=== PATIENT | male | born 1955 | race Caucasian/White ===

== ENCOUNTER 2017-03-16 09:45 | Inpatient (IN) | payer OTHER ==
--- NOTE | 2017-03-10 22:51 | HP ---
CC: Dr. Celis; Dr. Thomas; Dr. Mead * ADMISSION HISTORY AND PHYSICAL: DATE OF ADMISSION: 03/16/17 ATTENDING SURGEON: Dr. Justin Kendall * (DICTATED BY CONCEPCIÓN RODRIGUEZ) CHIEF COMPLAINT: Colon cancer; liver disease. HISTORY OF PRESENT ILLNESS: This is a 61-year-old male with significant past medical history of alcoholism, type 2 diabetes and hypertension, who underwent initial screening colonoscopy on 02/09/[address] Mead. Findings at that time included two polyps, one at 15 and the other at 30 cm, the first at 15 cm being a tubular adenoma and the second at 30 cm being positive for invasive adenocarcinoma. Also noted was significant stiffness and angulation around the 30 cm point, though he was able to maneuver the scope to the cecum and there were no other additional findings or concerns. Because the initial lesions were not suspicious, the patient did require repeat colonoscopy on 02/23/17 to tattoo the area of the malignant lesion. In addition to the CT scan done that same date showed small right pleural effusion, hepatic steatosis, splenomegaly, but no evidence of metastatic disease. The patient has met with Dr. Thomas and is undergoing lab work for hemochromatosis, which is still pending. He was seen by Dr. Kendall on 02/22/[address] Kendall has reviewed his history and diagnostic workup. The patient understands the indications for surgery, the risks, benefits and alternatives. He would like to proceed as scheduled with laparoscopic assisted sigmoid colectomy with liver biopsy. 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 PAST SURGICAL HISTORY: Include an attempted exploratory laparotomy in 2010, which was aborted secondary to the combination of adhesions and bleeding problems, though the patient is unsure about the details. That surgery was I believe performed at [facility] in [place]. He has undergone sinus surgeries remotely and excision of a skin cancer at the bridge of the nose. No other surgical or anesthesia complications reported. CURRENT MEDICATIONS: 1. Glipizide extended release 2.5 mg once daily. 2. Metoprolol succinate extended release 25 mg once daily. 3. Mirtazapine 30 mg q.h.s. 4. Oxazepam 15 mg q.h.s. 5. Spironolactone 50 mg every day. 6. An unspecified prescription eyedrop that he uses p.r.n., but has not used in the last 6 months. 7. Multivitamin once daily. 8. Tums once daily. DRUG ALLERGIES: DIPHENHYDRAMINE (facial swelling) (the patient is unsure if he has ever had any similar reactions from other antihistamines). FAMILY HISTORY: Positive for cancer, possibly gallbladder cancer in his father and pancreatic cancer in his mother. He is unsure of any specific family history of colorectal cancer. There is no known family history of anesthesia problems, bleeding or clotting disorders. SOCIAL HISTORY: The patient is . He lives by himself. 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 He has never been a smoker. He has a history of alcoholism with recent intake being around five beers per day, though he states that for the past three days he has had no alcohol and intends to maintain abstinence. No other recreational drug use reported. REVIEW OF SYSTEMS: General: No recent constitutional symptoms or acute illnesses. His weight has been relatively stable. Cardiovascular: No chest pain, palpitations or history of cardiovascular disease, history for hypertension. Respiratory: No history of asthma, chronic cough, or shortness of breath. GI: No recent problems reported, other than per the HPI. He denies GERD symptoms. : He has been followed recently by Dr. Burns for a hydrocele on the right which has been minimally symptomatic. He has undergone digital rectal exam, but is unsure about any additional prostate cancer screening. Endocrine: Type 2 diabetes. He used to check fingersticks regularly, but states that he stopped because they were all close to normal. No history of thyroid dysfunction. PHYSICAL EXAMINATION GENERAL: Well-nourished, well-developed male, in no acute distress. VITAL SIGNS: Height 68 inches, weight 184 pounds, BMI of 28. Temperature 98.5 , blood pressure 128/82, pulse 76, respirations 12. HEENT: Pupils are equal, round, and reactive. EOMs intact. No conjunctival pallor or scleral icterus. Oropharynx: Teeth in fair to good repair. Some missing teeth. No acute lesions noted. NECK: No lymphadenopathy, thyromegaly, or masses. LUNGS: Clear to auscultation. No rales or wheezes. HEART: Regular rate and rhythm. No murmur noted. ABDOMEN: Well-healed periumbilical incision where there is also palpable bulge , which is nontender and reducible consistent with an incisional hernia. He also has an area of diastasis of the upper abdomen. The remainder of the abdomen is soft and nontender without palpable masses or organomegaly, though it is somewhat difficult to percuss his liver and spleen. GENITALIA AND RECTAL: Not done (right-sided hydrocele by history). BACK: No spinous process or CVA tenderness. EXTREMITIES: No edema. NEUROLOGICAL: Grossly intact. SKIN: Warm and dry. No suspicious rashes or lesions noted. IMPRESSION: Sigmoid colon cancer; possible cirrhosis, possible hemochromatosis. PLAN: Laparoscopic assisted-sigmoid colectomy; liver biopsy. CONCEPCIÓN RODRIGUEZ [id number]/[facility] #: [id number] MTDChantelle
[~2017-03-16 09:45] MED LIST: Buffered Lidocaine 0.9% SYRIN* 5 ML/SYR SYRINGE INTRADERM ONE; ERTApenem(*) 1 GM in NS 0.9% 50 ML* 50 ML IVPB SCH; Famotidine IV* 10 MG/ML 2 ML (20 mg) IV ONE; Metoclopramide TAB* 10 MG PO ONE
[2017-03-16] MEDS ORDERED: Metoclopramide TAB* 10 MG ONE (10:06)
[2017-03-16] MEDS ORDERED: Buffered Lidocaine 0.9% SYRIN* 5 ML/SYR SYRINGE ONE (10:06)
[2017-03-16] MEDS ORDERED: Famotidine IV* 10 MG/ML 2 ML (20 mg) ONE (10:06)
[2017-03-16] MEDS ORDERED: Dexamethasone IV* 4 MG/ML 1 ML (4 MG) ONE (12:11)
[2017-03-16] MEDS ORDERED: fentaNYL* 50 MCG/ML 5 ML VIAL (250 MCG VIAL) ONE (12:11)
[2017-03-16] MEDS ORDERED: Ketorolac INJ* 30 MG/ML 1 ML VIAL ONE (12:11)
[2017-03-16] MEDS ORDERED: Ondansetron INJ* 2 MG/ML VIAL ONE (12:11)
[2017-03-16] MEDS ORDERED: fentaNYL* 50 MCG/ML 2 ML VIAL (100 MCG VIAL) ONE ×2 (12:11→16:14)
[2017-03-16] MEDS ORDERED: Cisatracurium* 2 MG/ML MDV 5 ML ONE ×2 (12:11→15:57)
[2017-03-16] MEDS ORDERED: Midazolam* 1 MG/ML 10 ML VIAL (10 MG) ONE (12:11)
[2017-03-16] MEDS ORDERED: Propofol* 10 MG/ML 20 ML BTL IV PUSH ONE (12:11)
[2017-03-16] MEDS ORDERED: Lidocaine 2% PF * 5 ML VIAL ONE (12:11)
[2017-03-16] MEDS ORDERED: KETAMINE HCL* 50 MG/ML 10 ML VIAL ONE (12:11)
[2017-03-16] MEDS ORDERED: Bupivacaine 0.25% SDV* 30 ML ONE (12:42)
[2017-03-16] MEDS ORDERED: Phenylephrine IV* 40 MCG/ML 10 ML SYRINGE ONE (13:18)
[2017-03-16] MEDS ORDERED: Bupivacaine 0.5% SDV PF* 10-30ML VIAL ONE (13:21)
[2017-03-16] MEDS ORDERED: Phenylephrine INJ* 10 MG/ML 1 ML VIAL (10 MG) ONE (13:54)
[2017-03-16] MEDS ORDERED: EPHEDrine (Pressors)* 50 MG/ML VIAL ONE (14:00)
[2017-03-16] MEDS ORDERED: Ondansetron INJ* 2 MG/ML VIAL IV PRN ×2 (14:39→17:48)
[2017-03-16] MEDS ORDERED: fentaNYL* 50 MCG/ML 2 ML VIAL (100 MCG VIAL) IV PRN (14:39)
[2017-03-16] MEDS ORDERED: oxyCODONE/Acetamin 5/325 MG* TAB PO PRN (14:39)
[2017-03-16] MEDS ORDERED: Ketorolac INJ* 30 MG/ML 1 ML VIAL IV PRN (14:44)
[2017-03-16] MEDS ORDERED: Ropivacaine 0.2% EPIDURAL* 200 MG/100 ML BAG EPIDURAL SCH (15:00)
[2017-03-16] MEDS ORDERED: Ropivacaine 0.2% EPIDURAL* 200 MG/100 ML BAG EPIDURAL ONE (15:49)
[2017-03-16] MEDS ORDERED: HYDROmorphone INJ* 1 MG/ML CARPUJECT SYRINGE ONE (16:24)
[2017-03-16] MEDS ORDERED: Ropivacaine (OR use only) 2 MG/ML 1 ML ONE ×2 (16:24→17:15)
[2017-03-16] MEDS ORDERED: Neostigmine Methylsulfate* 2 MG/2 ML SYRINGE ONE (17:14)
[2017-03-16] MEDS ORDERED: Glycopyrrolate IV* 0.2 MG/ML 1 ML VIAL ONE (17:14)
[2017-03-16] MEDS ORDERED: Morphine PCA ADULT* 5 MG/ML 30 ML PCA SCH (18:00)
--- NOTE | 2017-03-16 18:11 | BRIEFOPN ---
Brief Operative Note - Surgery Procedures: PREOP DX: SIGMOID COLON CA; LIVER DISEASE POSTOP DX: SAME AND PERITONEAL ADHESIONS PROC: LAPAROSCOPY UNIQUE; LAPAROTOMY UNIQEU, SIGMOID COLECTOMY, CORE NEEDLE LIVER BIOPSY. SURG: MECENAS ASSIST: REENA ANES: GET; TOAL EBL: 500ML IVF: 4.3 L LR U/O: SPEC: 1) SIGMOID COLON 2) LIVER BX DRAIN: NONE COMPL: NONE CONDITION: STABLE; EXTUBATED; TO RR.
[2017-03-16] MEDS ORDERED: Dextrose 50% Syringe 50 ML* 25 GM/50 ML SYRINGE IV PUSH PRN (20:51)
[2017-03-16] MEDS ORDERED: Oxazepam CAP* 15 MG PO SCH (21:00)
[2017-03-16] MEDS ORDERED: Metoprolol Succinate XL TAB* 25 MG PO SCH (21:00)
[2017-03-16] MEDS: Metoprolol Tartrate TAB* 25 MG PO SCH (22:28)
[2017-03-16] MEDS: Mirtazapine TAB* 15 MG PO SCH (22:28)
[2017-03-16] MEDS: Insulin LISPRO* 1 UNITS UNIT SUBCUT SCH (22:29)
[2017-03-16] MEDS: Oxazepam CAP* 15 MG PO SCH (22:38)
--- NOTE | 2017-03-17 01:38 | CONS ---
CC: Dr. Celis; Dr. Blood * CONSULTATION REPORT: DATE OF CONSULT: 03/16/17 SERVICE REQUESTING CONSULTATION: Surgery. PRIMARY CARE PROVIDER: Dr. Celis. REASON FOR CONSULTATION: Concern for alcohol withdrawal. SOURCE OF INFORMATION: History obtained from review of past medical records and interview with the patient. RELIABILITY: Fair. HISTORY OF PRESENT ILLNESS: This is a 61-year-old man underwent sigmoid colectomy, core needle liver biopsy, and lysis of adhesion on 03/16/[address] Kendall for removal after diagnosis of invasive adenocarcinoma and colonoscopy 02/09/17. The procedure reportedly uneventful, although full surgery note is not yet available. Estimated blood loss 500, 4.3 L lactated Ringer's received. In the PACU, the patient had a brief episode of hypotension, systolics 80s, recovered with decrease of epidural pain medication. The patient notes that he has been a heavy drinker of at least 5 beers per day for several years. His last drink was notably 2 days prior to this presentation. He cannot note any period of time that he has gone without drinking, which may have precipitated any withdrawal symptoms. When seen after the surgery, he had no complaints, not feeling anxious, agitated, no headache. The pain is well controlled. No clouding of sensorium. PAST MEDICAL HISTORY: Includes: 1. Alcoholism, approximately 5 drinks per day. 2. Concern for cirrhosis, status post liver biopsy today. Concern for hemochromatosis. Final study is pending. 3. Invasive adenocarcinoma, status post sigmoidectomy. 4. Type 2 diabetes. 5. Hypertension. 6. History of peptic ulcer disease. 7. Héctor's disease. 8. Insomnia. 9. Depression. PAST SURGICAL HISTORY: Includes attempted exploratory laparotomy in 2010, remote sinus surgeries, and excision of skin cancer on the bridge of the nose. HOME MEDICATIONS: 1. Glipizide extended release 2.5 mg daily. 2. Metoprolol succinate 25 mg daily. 3. Mirtazapine 30 mg in the evening. 4. Oxazepam 15 mg in the evening. 5. Spironolactone 50 mg daily. 6. Eyedrops unknown type, currently not in use. 7. Multivitamin daily. 8. Tums daily. ALLERGIES: ANTIHISTAMINES, AMPHETAMINE, and DIPHENHYDRAMINE. FAMILY HISTORY: Positive family history of cancer, suspected gallbladder in his father, pancreatic in his mother. SOCIAL HISTORY: . His ex- is his healthcare proxy. Nonsmoker. Drinks approximately 5 beers per day. Last drink 2 days prior. PHYSICAL EXAM: Vitals when seen by this author: Blood pressure 110/77, heart rate is 88, respiratory rate is 12, 100% on 2 L. T-max in the hospital 97.3. Lying flat in bed, awake, interactive, in no apparent distress. His oropharynx is clear. He has moist mucous membranes. He has regular rate and rhythm. No murmurs, rubs, or gallops. His lungs are clear anteriorly. His abdomen is soft. He has surgical incisions covered. His extremities are warm and well perfused without clubbing, cyanosis, or edema. He is alert and oriented x3. His cranial nerves II through XII are intact. He has no anxiety, agitation, or depression. DIAGNOSTIC STUDIES/LAB DATA: Labs reviewed, point of care glucose 162 at 6:14 p.m. ASSESSMENT AND PLAN: A 61-year-old man, status post sigmoidectomy, lysis of adhesions, and liver biopsy being seen secondary to concern for potential future alcohol withdrawal. 1. Alcohol abuse. Currently, no evidence of alcohol withdrawal. We will not place on withdrawal protocol at this time as he is status post surgery recite of sedating medications. He received additional benzodiazepines prematurely. Should he exhibit symptoms of alcohol withdrawal, we will initiate the [facility] protocol. I counseled alcohol cessation. 2. Hypertension. Take spironolactone, currently holding in the setting of hypotension, status post procedure. Continue metoprolol tartrate 12.5 mg twice daily withhold parameters. 3. Insomnia. Holding oxazepam in the setting of aforementioned anesthesia. 4. Type [address] on insulin sliding scale, adjust as necessary. 5. Colon cancer. Care per primary oncology team. Status post sigmoidectomy postop day 0, cared per primary surgical team. 6. DVT prophylaxis. Per primary team. Thank you for this consultation. [id number]/[facility] #: [id number] MAKAYLA
--- NOTE | 2017-03-17 04:47 | OP ---
CC: Micheal eClis MD; Soledad Thomas MD; Zeyad Mead MD * DATE OF OPERATION: 03/16/17 - ROOM #339 DATE OF : 53 SURGEON: Justin Kendall MD [employer] INTERN: Ruben Richardson MD ANESTHESIOLOGIST: Dr. Sander Ortiz. ANESTHESIA: General endotracheal. PRE-OP DIAGNOSES: Sigmoid colon carcinoma and liver disease. POST-OP DIAGNOSES: Sigmoid colon carcinoma and liver disease. OPERATIVE PROCEDURE: Diagnostic laparoscopy with lysis of adhesions, laparotomy with lysis of adhesions, sigmoid colectomy, and core needle biopsy of the liver. ESTIMATED BLOOD LOSS: 500 mL. IV FLUIDS: 4.3 L of crystalloid. SPECIMENS: 1. Sigmoid colon. 2. Liver biopsy. DRAINS: None. COMPLICATIONS: None. COUNTS: Instrument, needle, and sponge counts were correct. DESCRIPTION OF PROCEDURE: The patient was brought to the operating room and placed on the table in a split leg fashion. An epidural catheter was placed by Dr. Ortiz prior to the surgery. Sequential compression devices were placed on both lower extremities. General anesthesia was administered. The rectum was irrigated with Betadine solution and the prep appeared to be good. The abdomen was prepped and draped in the usual sterile fashion and he received appropriate intravenous antibiotics. Time-out was performed. Local anesthetic was infiltrated into the skin and soft tissue prior to making its incision. Entry to the abdomen was through an infraumbilical vertical incision using an open technique. After accessing the peritoneal cavity, a 12- mm trocar was placed and carbon dioxide was insufflated to a pressure of 15 mmHg. Laparoscope was introduced, and additional trocars were placed in the suprapubic midline in the left lower quadrant and right lower quadrant under direct visualization. These were each 5 mm trocars. There was noted to be an extensive amount of adhesions of omentum in the upper abdomen with adhesions of small intestine into a small incisional hernia in the midline. Adhesiolysis was performed to mobilize the descending colon; however, once the dissection was noted to be in the pelvis, the dense adhesions in the pelvis made further pursuit of a laparoscopic approach impractical and therefore decision was made to convert to an open procedure. A midline laparotomy was undertaken and this encompass the previous midline scar and extended down to the suprapubic region. The peritoneal cavity once opened revealed again numerous adhesions of small intestine into the anterior abdominal wall on the upper midline incision and numerous adhesions as well of the colon including the sigmoid colon, which was done upon itself coursing to the right side of the abdomen and coming back to the top of the rectum. The adhesions of the small bowel to the ventral incisional hernia were first addressed and after performing the lysis of adhesions and freeing the anterior abdominal wall at that side, the small bowel was inspected. There is a small serosal tear that was oversewn with 3-0 silks. Otherwise, there appeared to be no injury to the small intestine. There were dense adhesions of the omentum to the anterior abdominal wall and the upper abdomen; therefore, it was decided to proceed with a sigmoid dissection first. Sharp and blunt dissection as well as electrocautery and LigaSure were used to free the adhesions along the descending colon, along the white line of Toldt. There appeared to be quite a thickened mesentery with thickened sigmoid colon dripping over toward the right side and then turning back to the left before meeting with the rectum. There were interloop adhesions of the colon to itself, there were adhesions of the colon to the peritoneum in the pelvis and these were all lysed using the above combination of techniques. Once the sigmoid colon was mobilized, it was noted that the mesentery was quite short and thick. The descending colon was divided at the junction with the sigmoid using a MINI 60 blue stapler and then LigaSure was used to incrementally divide the mesentery, staying out of the retroperitoneum well away from the ureter and gonadal vessels on the left. The dissection proceeded down to the top of the rectum. At this point, a window was created in the rectum mesentery and the proximal rectum and the rectum was stapled off with the TA 60-4.8 Stapler and the proximal rectum was occluded with a bowel clamp, then the rectum was divided. The specimen was elevated and again the LigaSure was used to divide the remaining attachments to the mesentery. Once the specimen was freed, it was submitted to pathology in formalin. Decision was to proceed with the EEA stapled anastomosis and the proximal colon staple line was excised and the 28-mm EEA stapler was selected for the anastomosis. The anvil was placed in a proximal lumen and a pursestring suture of 2-0 Prolene was used as a whipstitch to secure the anvil. The colorectal anastomosis was performed with the EEA stapler using a double staple technique and after completing the anastomosis, bubble leak test was performed with no leak identified. The pelvis was copiously lavaged and then attention was turned to the upper abdomen for adhesiolysis in order to perform the liver biopsy. The omentum that was densely adhered to the anterior abdominal wall throughout the upper abdomen was dissected free using a combination of blunt dissection and cautery. The raw surfaces were noted to ooze. The liver felt very firm and was not able to be fully visualized at first, then a small window was created in omentum that was covering the right lobe of the liver and this was the site of the liver biopsy. The biopsy needle was placed through a separate stab wound incision in the right upper quadrant directed toward the right lobe of the liver and then a core biopsy specimen was obtained and hemostasis was achieved with a combination of cautery and Surgicel and direct pressure to the site. The abdomen was copiously lavaged and inspected for hemostasis. Additional Surgicel was placed over the areas of the omentum and the upper abdomen as well. After assuring hemostasis, the laparotomy incision was closed with #1 looped PDS. To mobilize the fascial edges at the incisional hernia, subcutaneous tissue was raised as flaps to identify the fascial edges. The umbilical stalk was reapproximated to the fascia with interrupted 3-0 Vicryl. After completing the closure, the wound was copiously lavaged and then again inspected for hemostasis. The skin incisions were all closed with surgical edmar. The wounds were dressed with Coverlet dressings except for the liver biopsy site that was covered with Steri-Strips. The patient tolerated the procedure well, was extubated uneventfully and transferred to the recovery room in stable condition. The procedure was considerably more difficult to do than would be typical due to the extensive amounts of adhesions present. The operative time for the case was approximately 3-1/5 hours. [id number]/[facility] #: [id number] [facility] HEALTH PARTNERSChantelle
[2017-03-17 05:44] LABS: ABS Basophils 0 10^3/ul (0-0.2); ABS Eosinophils 0 10^3/ul (0-0.6); ABS Lymphocytes 0.2 10^3/ul (1.0-4.8); ABS Monocytes 0.3 10^3/ul (0-0.8); ABS Neutrophils 2.9 10^3/ul (1.5-7.7); ABS Nucleated RBC 0 10^3/ul; Eosinophil % 0.6 % (0-6); Hematocrit 31 % (42-52); Hemoglobin 11.1 g/dl (14.0-18.0); Lymphocyte % 6.3 % (25-47); Mean Corpuscular HGB Conc 35 g/dl (31-36); Mean Corpuscular Hemoglobin 35 pg (27-31); Mean Corpuscular Volume 100 fL (80-94); Nucleated Red Blood Cells % 0.1; Red Blood Count 3.15 10^6/ul (4.0-5.4); Red Cell Distribution Width 13 % (10.5-15); White Blood Count 3.5 10^3/ul (3.5-10.8)
[2017-03-17 05:58] LABS: EGFR Non-African American 92.6 (>60)
[2017-03-17 06:18] LABS: Mean Platelet Volume 10 um3 (7.4-10.4)
[2017-03-17 06:19] LABS: Platelet Count 59 10^3/ul (150-450)
[2017-03-17] MEDS: Insulin LISPRO* 1 UNITS UNIT SUBCUT SCH ×4 (07:27→21:29)
--- NOTE | 2017-03-17 09:08 | SURGPN ---
Subjective - Introduction -: Admitted on: 03/16/2017 Patient's surgical date: 03/16/2017 Procedure completed: Laparoscopoic UNIQUE, converted to laparotomy with UNIQUE, sigmoid colectomy and liver biopsy - Medications -: Active Medications Generic Name Dose Route Start Last Admin Trade Name Freq PRN Reason Stop Dose Admin Dextrose 12.5 gm 03/16/17 20:51 D50w Syringe 50 Ml* IV PUSH .FOR FS < 60 - SS PRN FS < 60 Ropivacaine 200 mg in 100 mls @ 0 mls/hr 03/16/17 15:00 03/17/17 07:23 Ropivacaine 0.2% Epidural* EPIDURAL 8 mls/hr .PER RATE LUCIE Administration Protocol Per Protocol Lactated Ringer's 500 mls @ 2,000 mls/hr 03/16/17 14:44 Lactated Ringers 500 Ml Bag* IV ONCE PRN FOR SBP < 90 Lactated Ringer's 1,000 mls @ 125 mls/hr 03/16/17 18:00 03/17/17 05:12 Lactated Ringers 1000 Ml Bag* IV 125 mls/hr .per rate LUCIE Administration Morphine Sulfate 30 mls @ 0 mls/hr 03/16/17 18:00 03/17/17 07:45 Morphine Front Office Supervisor Adult* 5 Mg/Ml FACTORY SUPERINTENDENT 1 mls/hr .change Q24H LUCIE Administration Protocol Per Protocol Insulin Human Lispro 0 units 03/16/17 21:00 03/17/17 07:27 Humalog* SUBCUT Not Given ACHS LUCIE Protocol Metoprolol Tartrate 12.5 mg 03/16/17 21:00 03/16/17 22:28 Lopressor Tab* PO 12.5 mg Q12HR LUCIE Administration Mirtazapine 30 mg 03/16/17 21:00 03/16/17 22:28 Remeron Tab* PO 30 mg BEDTIME LUCIE Administration Ondansetron HCl 4 mg 03/16/17 17:48 Zofran Inj* IV Q4H PRN NAUSEA/VOMITING Oxazepam 15 mg 03/16/17 21:00 03/16/17 22:38 Serax Cap* PO Not Given BEDTIME LUCIE - Comments Comments: Patient seen and examined at bedside. Reports doing better this AM. Pain is tolerable with FACTORY SUPERINTENDENT started earlier today. Denies nausea, vomiting, fever or chills. Objective - Objective -: Awake and alert, laying on his bed, appears comfortable and in NAD - Intake and Output -: Intake & Output 03/15/17 03/16/17 03/17/17 03/18/17 06:59 06:59 06:59 06:59 Intake Total 5734 Output Total 600 Balance 5134 Weight 176 lb 12.8 oz Intake: IV Fluids 5734 LR 5684 NS 50ML, Ertopenin 1G 50 Oral 0 Output: Andres 600 Other: Estimated Blood Loss 500+ Comment Surgical Physical Exam - Comments -: Vitals reviewed, afebrile Lungs CTA bilat. Heart RRR, no murmurs Abdomen soft, NT, ND. Incisions clean and dry. No guarding or rigidity. Andres with clear urine. Labs reviewed, H/H stable, Plt 59,000 Assessment and Plan - Assessment -: A 61 y/o male, POD#1, s/p laparoscopic converted to open sigmoid colectomy with UNIQUE and liver biopsy, stable - Plan Additional Comments: Clear liquid diet OOB to chair as tolerated Anemia of blood loss, hemodynamically stable Thrombocytopenia, Dr. Kendall aware and will discuss with Dr. Hugo Check labs in AM GI and DVT prophylaxis
[2017-03-17] MEDS: Metoprolol Tartrate TAB* 25 MG PO SCH ×2 (09:42→21:30)
[2017-03-17] MEDS ORDERED: NS 0.9% 500 ML* 500 ML IV SCH (11:00)
[2017-03-17] MEDS ORDERED: LR IV ONE (16:35)
[2017-03-17] MEDS ORDERED: NS 0.9% 250 ML* 250 ML ONE (16:47)
[2017-03-17] MEDS ORDERED: Ropivacaine* 300 MG in NS 0.9% 250 ML* 240 ML EPIDURAL SCH (17:00)
--- NOTE | 2017-03-17 17:50 | PN ---
Subjective Date of Service: 03/17/17 Interval History: Patient seen and examined at bedside. Patient reports that he was abstinent from alcohol for quite sometime and did not have any symptoms of withdrawal when he quit or during his period of heavy drinking. He did start drinking about a month ago. Currently he reports pain controlled. Still has epidural running and BP has been on the lower side. Pt denies dizziness at this time. Pt also denies hallucinations or symptoms of withdrawal. Family History: Unchanged from Admission Social History: Unchanged from Admission Past Medical History: Unchanged from Admission Objective Active Medications: Lactated Ringer's (Lactated Ringers 500 Ml Bag*) 500 mls @ 2,000 mls/hr IV ONCE PRN Lactated Ringer's (Lactated Ringers 1000 Ml Bag*) 1,000 mls @ 125 mls/hr IV .per rate LUCIE Morphine Sulfate (Morphine Supervisor [employer] Adult* 5 Mg/Ml) 30 mls @ 0 mls/hr CARAMEL CUTTER HAND .change Q24H LUCIE; Per Protocol Ropivacaine 300 mg/ Sodium (Chloride) 300 mls @ 0 mls/hr EPIDURAL PER RATE LUCIE ; Per Protocol Insulin Human Lispro (Humalog*) 0 units SUBCUT ACHS LUCIE Metoprolol Tartrate (Lopressor Tab*) 12.5 mg PO Q12HR LUCIE Mirtazapine (Remeron Tab*) 30 mg PO BEDTIME LUCIE Omeprazole (Prilosec Cap*) 20 mg PO 0600 LUCIE Ondansetron HCl (Zofran Inj*) 4 mg IV Q4H PRN Oxazepam (Serax Cap*) 15 mg PO BEDTIME LUCIE Vital Signs Temp Pulse Resp BP Pulse Ox 98.8 F 112 16 115/66 97 03/17/17 17:35 03/17/17 17:35 03/17/17 17:55 03/17/17 17:35 03/17/17 15:21 Oxygen Devices in Use Now: Nasal Cannula Appearance: sitting up in bed, NAD Eyes: No Scleral Icterus, PERRLA Ears/Nose/Mouth/Throat: NL Teeth, Lips, Gums Neck: NL Appearance and Movements; NL JVP Respiratory: Symmetrical Chest Expansion and Respiratory Effort, Clear to Auscultation Cardiovascular: NL Sounds; No Murmurs; No JVD, RRR Abdominal: - - abdomen soft Extremities: No Edema Skin: No Rash or Ulcers, - - surgical incisions intact Neurological: Alert and Oriented x 3 Lines/Tubes/Other Access: Clean, Dry and Intact Peripheral IV Nutrition: Taking PO's Result Diagrams: 03/17/17 05:34 03/17/17 05:34 Assess/Plan/Problems-Billing Pt is a 61 y/o M hx of EtOH abuse, HTN, s/p sigmoidectomy for invasive adenocarcinoma, lysis of adhesions and liver biopsy. Hospitalist consulted for EtOH withdrawal. - Patient Problems (1) Alcohol withdrawal Comment: No signs or symptoms of withdrawal. No WAM protocol for now. Would institute if patient starts to exhibit and sign/symptoms. (2) Hypotension Comment: Asymptomatic. Suspect secondary to epidural which is managed by anesthesia. Dose being decreased and patient receiving bolus. (3) Status post laparoscopic-assisted sigmoidectomy Comment: Management per surgery. Pain control. (4) HTN (hypertension) Comment: Metoprolol has hold parameters and was not given today. (5) Diabetes Comment: Sugars controlled. Continue Lispro sliding scale. (6) Insomnia Comment: Oxazepam on hold with other narcotics. (7) DVT prophylaxis Comment: per primary team (8) Full code status Status and Disposition: Inpatient for sigmoidectomy. Dispo per surgery.
[2017-03-17 18:15] LABS: Mean Platelet Volume 10 um3 (7.4-10.4); Platelet Count 72 10^3/ul (150-450)
[2017-03-17] MEDS: Mirtazapine TAB* 15 MG PO SCH (21:31)
[2017-03-17] MEDS: Oxazepam CAP* 15 MG PO SCH (23:10)
--- NOTE | 2017-03-18 00:23 | PN ---
Progress Note - Progress Note Date of Service: 03/18/17 Note: Cross cover note: Called to see patient for tachycardia Abdominal pain currently 05/29. Denies anxiety, nausea, CP/SOB, ORR. No clouding of sensorium, hallucination, anxiety/agitation Mild distention and mild TTP throughout, patient not diaphoretic, no tremulousness. EKG performed - sinus tachycardia BP noted to be low today thought 2/2 spidural. Responded to med changes and fluid challenge Received 1 U Platelets this afternoon Care already discussed with primary surgical team yojana who has requested hospitalist follow Plan: 1L LR fluid challenge now Place on telemetry for more facile trending of HR Check CBC Doubt rebound from beta tessa as he only missed 1 dose today Doubt etoh withdrawal without above listed symptoms
[2017-03-18 00:38] LABS: ABS Basophils 0 10^3/ul (0-0.2); ABS Eosinophils 0.4 10^3/ul (0-0.6); ABS Lymphocytes 0.5 10^3/ul (1.0-4.8); ABS Monocytes 0.5 10^3/ul (0-0.8); ABS Neutrophils 3.8 10^3/ul (1.5-7.7); ABS Nucleated RBC 0 10^3/ul; Eosinophil % 8.5 % (0-6); Hematocrit 30 % (42-52); Hemoglobin 10.6 g/dl (14.0-18.0); Lymphocyte % 8.9 % (25-47); Mean Corpuscular HGB Conc 35 g/dl (31-36); Mean Corpuscular Hemoglobin 35 pg (27-31); Mean Corpuscular Volume 100 fL (80-94); Mean Platelet Volume 10 um3 (7.4-10.4); Nucleated Red Blood Cells % 0.1; Red Blood Count 2.98 10^6/ul (4.0-5.4); Red Cell Distribution Width 13 % (10.5-15); White Blood Count 5.1 10^3/ul (3.5-10.8)
[2017-03-18 00:40] LABS: Platelet Count 61 10^3/ul (150-450)
[2017-03-18 05:22] LABS: ABS Basophils 0 10^3/ul (0-0.2); ABS Eosinophils 0.4 10^3/ul (0-0.6); ABS Lymphocytes 0.5 10^3/ul (1.0-4.8); ABS Monocytes 0.3 10^3/ul (0-0.8); ABS Neutrophils 3.1 10^3/ul (1.5-7.7); ABS Nucleated RBC 0 10^3/ul; Eosinophil % 9.1 % (0-6); Hematocrit 30 % (42-52); Hemoglobin 10.5 g/dl (14.0-18.0); Lymphocyte % 10.5 % (25-47); Mean Corpuscular HGB Conc 35 g/dl (31-36); Mean Corpuscular Hemoglobin 36 pg (27-31); Mean Corpuscular Volume 101 fL (80-94); Nucleated Red Blood Cells % 0; Red Blood Count 2.94 10^6/ul (4.0-5.4); Red Cell Distribution Width 13 % (10.5-15); White Blood Count 4.3 10^3/ul (3.5-10.8)
[2017-03-18 05:32] LABS: EGFR Non-African American 99.4 (>60)
[2017-03-18 06:04] LABS: Mean Platelet Volume 11 um3 (7.4-10.4); Platelet Count 51 10^3/ul (150-450)
[2017-03-18] MEDS: Omeprazole CAP* 20 MG PO SCH (06:44)
[2017-03-18] MEDS: Insulin LISPRO* 1 UNITS UNIT SUBCUT SCH ×4 (08:09→21:20)
[2017-03-18] MEDS: Metoprolol Tartrate TAB* 25 MG PO SCH ×2 (08:11→21:19)
--- NOTE | 2017-03-18 08:11 | PN ---
Progress Note - Progress Note Date of Service: 03/18/17 SOAP: Subjective: "rough night" felt over sedated from morphine and "out of it" was also tachycardic for unclear reasons over night. abdominal pain well controlled. passing gas. no bleeding noted Objective: Vital Signs Temp Pulse Resp BP Pulse Ox 99.4 F 109 16 153/81 95 03/18/17 00:41 03/18/17 06:51 03/18/17 06:51 03/18/17 01:51 03/18/17 06:51 lying flat in nad perr eomi no tremors noted tachycardia cta bl minimal blood on midline dressing. min ttp, no ecchymoses, +bs no le edema A+O x 3, nonfocal neurological exam Laboratory Results - last 24 hr 03/17/17 03/17/17 03/17/17 12:00 17:12 18:09 WBC RBC Hgb Hct MCV MCH MCHC RDW Plt Count 72 L MPV 10 Neut % (Auto) Lymph % (Auto) [place] % (Auto) Eos % (Auto) Baso % (Auto) Absolute Neuts (auto) Absolute Lymphs (auto) Absolute Monos (auto) Absolute Eos (auto) Absolute Basos (auto) Absolute Nucleated RBC Nucleated RBC % Sodium Potassium Chloride Carbon Dioxide Anion Gap BUN Creatinine Est GFR ( Amer) Est GFR (Non-Af Amer) BUN/Creatinine Ratio Glucose POC Glucose (mg/dL) 185 H 194 H Calcium Magnesium 03/17/17 03/18/17 03/18/17 21:07 00:27 04:54 WBC 5.1 RBC 2.98 L Hgb 10.6 L Hct 30 L MCV 100 H MCH 35 H MCHC 35 RDW 13 Plt Count 61 L MPV 10 Neut % (Auto) 73.3 Lymph % (Auto) 8.9 L [place] % (Auto) 9.1 H Eos % (Auto) 8.5 H Baso % (Auto) 0.2 Absolute Neuts (auto) 3.8 Absolute Lymphs (auto) 0.5 L Absolute Monos (auto) 0.5 Absolute Eos (auto) 0.4 Absolute Basos (auto) 0 Absolute Nucleated RBC 0 Nucleated RBC % 0.1 Sodium 138 Potassium TNP Chloride 106 Carbon Dioxide 27 Anion Gap 5 BUN 9 Creatinine 0.79 Est GFR ( Amer) 127.8 Est GFR (Non-Af Amer) 99.4 BUN/Creatinine Ratio 11.4 Glucose 112 H POC Glucose (mg/dL) 158 H Calcium 8.0 L Magnesium Cancelled 03/18/17 04:59 WBC 4.3 RBC 2.94 L Hgb 10.5 L Hct 30 L MCV 101 H MCH 36 H MCHC 35 RDW 13 Plt Count 51 L MPV 11 H Neut % (Auto) 72.5 Lymph % (Auto) 10.5 L [place] % (Auto) 7.6 Eos % (Auto) 9.1 H Baso % (Auto) 0.3 Absolute Neuts (auto) 3.1 Absolute Lymphs (auto) 0.5 L Absolute Monos (auto) 0.3 Absolute Eos (auto) 0.4 Absolute Basos (auto) 0 Absolute Nucleated RBC 0 Nucleated RBC % 0 Sodium Potassium Chloride Carbon Dioxide Anion Gap BUN Creatinine Est GFR ( Amer) Est GFR (Non-Af Amer) BUN/Creatinine Ratio Glucose POC Glucose (mg/dL) Calcium Magnesium Dextrose (D50w Syringe 50 Ml*) 12.5 gm IV PUSH .FOR FS < 60 - SS PRN PRN Reason: FS < 60 Lactated Ringer's (Lactated Ringers 500 Ml Bag*) 500 mls @ 2,000 mls/hr IV ONCE PRN PRN Reason: FOR SBP < 90 Lactated Ringer's (Lactated Ringers 1000 Ml Bag*) 1,000 mls @ 125 mls/hr IV .per rate LUCIE Last Admin: 03/18/17 07:57 Dose: 125 mls/hr Morphine Sulfate (Morphine Guest Specialist Adult* 5 Mg/Ml) 30 mls @ 0 mls/hr SYSTEMS NAVIGATOR .change Q24H LUCIE; Per Protocol PRN Reason: Protocol Last Admin: 03/17/17 07:45 Dose: 1 mls/hr Ropivacaine 300 mg/ Sodium (Chloride) 300 mls @ 0 mls/hr EPIDURAL PER RATE LUCIE ; Per Protocol PRN Reason: Protocol Last Admin: 03/17/17 17:02 Dose: 10 mls/hr Lactated Ringer's (Lactated Ringers 1000 Ml Bag*) 1,000 mls @ 0 mls/hr IV WIDE OPEN LUCIE PRN Reason: Wide Open Stop: 03/18/17 23:59 Last Admin: 03/18/17 00:56 Dose: 999 mls/hr Insulin Human Lispro (Humalog*) 0 units SUBCUT ACHS LUCIE PRN Reason: Protocol Last Admin: 03/17/17 21:29 Dose: 1 units Metoprolol Tartrate (Lopressor Tab*) 12.5 mg PO Q12HR LUCIE Last Admin: 03/17/17 21:30 Dose: 12.5 mg Mirtazapine (Remeron Tab*) 30 mg PO BEDTIME LUCIE Last Admin: 03/17/17 21:31 Dose: 30 mg Omeprazole (Prilosec Cap*) 20 mg PO 0600 LUCIE Last Admin: 03/18/17 06:44 Dose: 20 mg Ondansetron HCl (Zofran Inj*) 4 mg IV Q4H PRN PRN Reason: NAUSEA/VOMITING Oxazepam (Serax Cap*) 15 mg PO BEDTIME [facility] Last Admin: 03/17/17 23:10 Dose: Not Given Assessment: 61 yo M w cirrhosis (ETOH and newly diagnosed hemachromatosis) and colon CA sp hemicolectomy now with thrombocytopenia postoperatively with epidural catheter in place. Clearly he is at higher risk of complication with this catheter in place. I would recommend checking to make sure that he is not otherwise coagulopathic (PT/PTT ordered), and then transfusing 1 U plts and if count >70 pulling catheter. I have asked the blood bank to order in the unit but did not order transfusion yet pending coags. If he is coagulopathic I would give weight -dosed FFP in addition to the platelets. I have verbalized these recommendations to Dr. Kendall.
[2017-03-18 09:39] LABS: INR 1.21 (0.77-1.02)
[2017-03-18] MEDS ORDERED: Phytonadione Oral Solution* 5 MG/25 ML UDC PO ONE (09:41)
--- NOTE | 2017-03-18 10:37 | PN ---
Progress Note - Progress Note Date of Service: 03/18/17 SOAP: Subjective: No pain control issues. Never had nausea. Tolerating clears. Passing flatus and had loose BMs yesterday, no blood. He doesn't like the way the DRY KILN BURNER makes him feel. Objective: Vital Signs Temp 99.7 F 03/18/17 07:39 Pulse 108 03/18/17 07:39 Resp 18 03/18/17 10:00 BP 145/76 03/18/17 07:39 Pulse Ox 96 03/18/17 10:00 Intake & Output 03/17/17 03/18/17 03/18/17 18:59 06:59 18:59 Intake Total 2682 2171 963 Output Total 350 1400 Balance 2332 771 963 Intake: IV Fluids 1592 696 963 LR 1592 696 963 IVPB 500 1000 LR 1000 NS (0.9%) 500 Oral 540 475 Platelets 50 Output: Andres 350 1400 OOB in chair; NAD Abd: incis c/d/i; minimal ecchmosis and no erythema; soft and min tender; distended. Laboratory Results - last 24 hr 03/17/17 03/17/17 03/17/17 12:00 17:12 18:09 WBC RBC Hgb Hct MCV MCH MCHC RDW Plt Count 72 L MPV 10 Neut % (Auto) Lymph % (Auto) [place] % (Auto) Eos % (Auto) Baso % (Auto) Absolute Neuts (auto) Absolute Lymphs (auto) Absolute Monos (auto) Absolute Eos (auto) Absolute Basos (auto) Absolute Nucleated RBC Nucleated RBC % INR (Anticoag Therapy) APTT Sodium Potassium Chloride Carbon Dioxide Anion Gap BUN Creatinine Est GFR ( Amer) Est GFR (Non-Af Amer) BUN/Creatinine Ratio Glucose POC Glucose (mg/dL) 185 H 194 H Calcium Magnesium Total Bilirubin Direct Bilirubin Indirect Bilirubin AST ALT Alkaline Phosphatase Total Protein Albumin Globulin Albumin/Globulin Ratio 03/17/17 03/18/17 03/18/17 21:07 00:27 04:54 WBC 5.1 RBC 2.98 L Hgb 10.6 L Hct 30 L MCV 100 H MCH 35 H MCHC 35 RDW 13 Plt Count 61 L MPV 10 Neut % (Auto) 73.3 Lymph % (Auto) 8.9 L [place] % (Auto) 9.1 H Eos % (Auto) 8.5 H Baso % (Auto) 0.2 Absolute Neuts (auto) 3.8 Absolute Lymphs (auto) 0.5 L Absolute Monos (auto) 0.5 Absolute Eos (auto) 0.4 Absolute Basos (auto) 0 Absolute Nucleated RBC 0 Nucleated RBC % 0.1 INR (Anticoag Therapy) APTT Sodium 138 Potassium TNP Chloride 106 Carbon Dioxide 27 Anion Gap 5 BUN 9 Creatinine 0.79 Est GFR ( Amer) 127.8 Est GFR (Non-Af Amer) 99.4 BUN/Creatinine Ratio 11.4 Glucose 112 H POC Glucose (mg/dL) 158 H Calcium 8.0 L Magnesium Cancelled Total Bilirubin Direct Bilirubin Indirect Bilirubin AST ALT Alkaline Phosphatase Total Protein Albumin Globulin Albumin/Globulin Ratio 03/18/17 03/18/17 03/18/17 04:59 08:08 08:50 WBC 4.3 RBC 2.94 L Hgb 10.5 L Hct 30 L MCV 101 H MCH 36 H MCHC 35 RDW 13 Plt Count 51 L MPV 11 H Neut % (Auto) 72.5 Lymph % (Auto) 10.5 L [place] % (Auto) 7.6 Eos % (Auto) 9.1 H Baso % (Auto) 0.3 Absolute Neuts (auto) 3.1 Absolute Lymphs (auto) 0.5 L Absolute Monos (auto) 0.3 Absolute Eos (auto) 0.4 Absolute Basos (auto) 0 Absolute Nucleated RBC 0 Nucleated RBC % 0 INR (Anticoag Therapy) APTT Sodium Potassium 3.3 L Chloride Carbon Dioxide Anion Gap BUN Creatinine Est GFR ( Amer) Est GFR (Non-Af Amer) BUN/Creatinine Ratio Glucose POC Glucose (mg/dL) 131 H Calcium Magnesium 1.0 L Total Bilirubin 1.10 H Direct Bilirubin 0.40 H Indirect Bilirubin 0.7 AST 34 ALT 25 Alkaline Phosphatase 72 Total Protein 5.6 L Albumin 2.8 L Globulin 2.8 Albumin/Globulin Ratio 1.0 03/18/17 08:50 WBC RBC Hgb Hct MCV MCH MCHC RDW Plt Count MPV Neut % (Auto) Lymph % (Auto) [place] % (Auto) Eos % (Auto) Baso % (Auto) Absolute Neuts (auto) Absolute Lymphs (auto) Absolute Monos (auto) Absolute Eos (auto) Absolute Basos (auto) Absolute Nucleated RBC Nucleated RBC % INR (Anticoag Therapy) 1.21 H APTT 26.0 Sodium Potassium Chloride Carbon Dioxide Anion Gap BUN Creatinine Est GFR ( Amer) Est GFR (Non-Af Amer) BUN/Creatinine Ratio Glucose POC Glucose (mg/dL) Calcium Magnesium Total Bilirubin Direct Bilirubin Indirect Bilirubin AST ALT Alkaline Phosphatase Total Protein Albumin Globulin Albumin/Globulin Ratio Assessment: POD#2 s/p sigmoid colectomy/liver bx. Doing well from surgery. Mild tachycardia but asymptomatic. Thrombocytopenia/coagulopathy from liver dz but no evidence for bleeding. Plan: Adv diet. Increase activity. Plt txfn/vit K per Dr. Thomas then can d/c CEI (d/w Dr. Ortiz). Hospitalist f/u of other medical issues appreciated. Following tachycardia. SCDs only for DVT prophylaxis given low Plts.
[2017-03-18] MEDS ORDERED: oxyCODONE TAB* 5 MG TAB PO PRN ×2 (10:45)
[2017-03-18] MEDS ORDERED: Magnesium Sulfate 2 GM IV* 2 GM/50 ML BAG IVPB ONE ×2 (11:02→14:05)
[2017-03-18] MEDS ORDERED: Potassium Chlor TAB* 20 MEQ TAB.ER PO ONE ×2 (11:02→16:00)
[2017-03-18] MEDS: D5W 1/2 NS KCl 20 Meq 1000 ML* 1,000 ML IV SCH (11:27)
[2017-03-18 13:52] LABS: Mean Platelet Volume 10 um3 (7.4-10.4); Platelet Count 70 10^3/ul (150-450)
--- NOTE | 2017-03-18 14:09 | PN ---
Subjective Date of Service: 03/18/17 Interval History: Patient seen and examined at bedside. Denies fever, chills, shortness of breath , chest discomfort, N/V/D. Pt states that he was passing flatus this AM and has moved his bowels. Family History: Unchanged from Admission Social History: Unchanged from Admission Past Medical History: Unchanged from Admission Objective Active Medications: Dextrose (D50w Syringe 50 Ml*) 12.5 gm IV PUSH .FOR FS < 60 - SS PRN Reason: FS < 60 Lactated Ringer's (Lactated Ringers 500 Ml Bag*) 500 mls @ 2,000 mls/hr IV ONCE PRN Reason: FOR SBP < 90 Morphine Sulfate (Morphine Scientific Writer Adult* 5 Mg/Ml) 30 mls @ 0 mls/hr FLAME BURNER .change Q24H LUCIE; Per Protocol Reason: Protocol Ropivacaine 300 mg/ Sodium (Chloride) 300 mls @ 0 mls/hr EPIDURAL PER RATE LUCIE ; Per Protocol Lactated Ringer's (Lactated Ringers 1000 Ml Bag*) 1,000 mls @ 0 mls/hr IV WIDE OPEN LUCIE Stop: 03/18/17 23:59 Potassium Chloride/Dextrose (D5w 1/2 Ns Kcl 20 Meq 1000 Ml*) 1,000 mls @ 50 mls /hr IV PER RATE LUCIE Insulin Human Lispro (Humalog*) 0 units SUBCUT ACHS LUCIE Metoprolol Tartrate (Lopressor Tab*) 12.5 mg PO Q12HR LUCIE Mirtazapine (Remeron Tab*) 30 mg PO BEDTIME LUCIE Omeprazole (Prilosec Cap*) 20 mg PO 0600 LUCIE Ondansetron HCl (Zofran Inj*) 4 mg IV Q4H PRN Reason: NAUSEA/VOMITING Oxazepam (Serax Cap*) 15 mg PO BEDTIME LUCIE Oxycodone HCl (Roxycodone Tab*) 5 mg PO Q4H PRN Reason: PAIN - MODERATE TO SEVERE Oxycodone HCl (Roxycodone Tab*) 10 mg PO Q4H PRN Reason: PAIN - SEVERE Vital Signs - 8 hr 03/18/17 03/18/17 03/18/17 06:51 07:39 08:00 Temperature 99.7 F Pulse Rate 109 108 Respiratory 16 18 18 Rate Blood Pressure 145/76 (mmHg) O2 Sat by Pulse 95 98 Oximetry 03/18/17 03/18/17 03/18/17 08:08 10:00 11:33 Temperature 98.6 F Pulse Rate 86 Respiratory 20 18 18 Rate Blood Pressure 131/71 (mmHg) O2 Sat by Pulse 96 96 100 Oximetry 03/18/17 03/18/17 03/18/17 11:59 12:00 12:42 Temperature 97.8 F 98.0 F Pulse Rate 84 86 Respiratory 18 18 16 Rate Blood Pressure 123/72 119/72 (mmHg) O2 Sat by Pulse 100 100 100 Oximetry Oxygen Devices in Use Now: Nasal Cannula - 1L Appearance: NAD, sitting up in bed Ears/Nose/Mouth/Throat: Mucous Membranes Moist Respiratory: Symmetrical Chest Expansion and Respiratory Effort, Clear to Auscultation Cardiovascular: NL Sounds; No Murmurs; No JVD, RRR Abdominal: NL Sounds; No Tenderness; No Distention Extremities: No Edema Skin: No Rash or Ulcers Neurological: Alert and Oriented x 3, NL Muscle Strength and Tone Lines/Tubes/Other Access: Clean, Dry and Intact Peripheral IV - site benign Nutrition: Taking PO's Result Diagrams: 03/18/17 13:40 03/18/17 08:50 Assess/Plan/Problems-Billing Mr. Walls is a 61 y/o M hx of EtOH abuse, HTN, s/p sigmoidectomy for invasive adenocarcinoma, lysis of adhesions and liver biopsy. Hospitalist consulted for EtOH withdrawal and tachycardia. - Patient Problems (1) Status post laparoscopic-assisted sigmoidectomy Code(s): Z90.49 - ACQUIRED ABSENCE OF OTHER SPECIFIED PARTS OF DIGESTIVE TRACT SNOMED Code(s): 832540606 Comment: - Management per surgery. - Tolerating a full liquid diet. - Continue Pain control. (2) Electrolyte abnormality Code(s): E87.8 - OTH DISORDERS OF ELECTROLYTE AND FLUID BALANCE, NEC SNOMED Code(s): 575212327 Comment: - Hypokalemia - Will receive replacement today and recheck labs in the AM - Hypomagnesemia - Will receive replacement today and recheck labs in the AM (3) Hypotension Comment: - Resolved. - Suspect secondary to epidural which is managed by anesthesia. (4) Thrombocytopenia Code(s): D69.6 - THROMBOCYTOPENIA, UNSPECIFIED SNOMED Code(s): 383692791 Comment: - Pt received 1 unit of platelets today - Heme consult, input appreciated - Continue to trend (5) Tachycardia Code(s): R00.0 - TACHYCARDIA, UNSPECIFIED SNOMED Code(s): 5788309 Comment: - Resolved - Unclear cause (6) Alcohol withdrawal Code(s): F10.239 - ALCOHOL DEPENDENCE WITH WITHDRAWAL, UNSPECIFIED SNOMED Code (s): 649607224 Comment: - No signs or symptoms of withdrawal. - No WAM protocol for now, would institute if patient starts to exhibit and sign /symptoms. (7) Diabetes Code(s): E11.9 - TYPE 2 DIABETES MELLITUS WITHOUT COMPLICATIONS SNOMED Code(s) : 56885132 Comment: - Glucose controlled, 110-150's. - Continue Lispro sliding scale. (8) HTN (hypertension) Code(s): I10 - ESSENTIAL (PRIMARY) HYPERTENSION SNOMED Code(s): 96122910 Comment: - Normotensive - Continue metoprololwith holding parameters (9) Insomnia Code(s): G47.00 - INSOMNIA, UNSPECIFIED SNOMED Code(s): 483263154 Comment: - Continue oxazepam. (10) DVT prophylaxis Code(s): LRM5652 - SNOMED Code(s): 907849578 Comment: - SCDs only in the setting of thrombocytopenia. (11) Full code status Code(s): Z78.9 - OTHER SPECIFIED HEALTH STATUS SNOMED Code(s): 978770280 Status and Disposition: Inpatient for sigmoidectomy. Dispo per surgery. Thank you for this consult.
[2017-03-18] MEDS: Mirtazapine TAB* 15 MG PO SCH (21:19)
[2017-03-18] MEDS: Oxazepam CAP* 15 MG PO SCH (22:32)
[2017-03-19 05:48] LABS: ABS Basophils 0 10^3/ul (0-0.2); ABS Eosinophils 0.4 10^3/ul (0-0.6); ABS Lymphocytes 0.5 10^3/ul (1.0-4.8); ABS Monocytes 0.3 10^3/ul (0-0.8); ABS Neutrophils 2.6 10^3/ul (1.5-7.7); ABS Nucleated RBC 0 10^3/ul; Eosinophil % 11.4 % (0-6); Hematocrit 29 % (42-52); Hemoglobin 10.6 g/dl (14.0-18.0); Lymphocyte % 12.1 % (25-47); Mean Corpuscular HGB Conc 36 g/dl (31-36); Mean Corpuscular Hemoglobin 36 pg (27-31); Mean Corpuscular Volume 100 fL (80-94); Mean Platelet Volume 10 um3 (7.4-10.4); Nucleated Red Blood Cells % 0.1; Platelet Count 68 10^3/ul (150-450); Red Blood Count 2.95 10^6/ul (4.0-5.4); Red Cell Distribution Width 13 % (10.5-15); White Blood Count 3.7 10^3/ul (3.5-10.8)
[2017-03-19 05:59] LABS: EGFR Non-African American 114.3 (>60)
[2017-03-19] MEDS: Omeprazole CAP* 20 MG PO SCH (06:10)
[2017-03-19] MEDS: Metoprolol Tartrate TAB* 25 MG PO SCH ×2 (07:30→21:47)
[2017-03-19] MEDS: Insulin LISPRO* 1 UNITS UNIT SUBCUT SCH ×4 (08:16→21:48)
[2017-03-19] MEDS: D5W 1/2 NS KCl 20 Meq 1000 ML* 1,000 ML IV SCH (08:17)
[2017-03-19] MEDS ORDERED: Potassium Chlor TAB* 20 MEQ TAB.ER PO ONE (08:34)
[2017-03-19] MEDS ORDERED: Magnesium Sulfate 1 GM IV* 1 GM/100 ML BAG IV ONE (08:35)
--- NOTE | 2017-03-19 08:43 | SURGPN ---
Subjective - Introduction -: Admitted on: 03/16/2017 Patient's surgical date: 03/16/2017 Procedure completed: Sigmoid colectomy with UNIQUE and liver bx - Medications -: Active Medications Generic Name Dose Route Start Last Admin Trade Name Freq PRN Reason Stop Dose Admin Dextrose 12.5 gm 03/16/17 20:51 D50w Syringe 50 Ml* IV PUSH .FOR FS < 60 - SS PRN FS < 60 Lactated Ringer's 500 mls @ 2,000 mls/hr 03/16/17 14:44 Lactated Ringers 500 Ml Bag* IV ONCE PRN FOR SBP < 90 Morphine Sulfate 30 mls @ 0 mls/hr 03/16/17 18:00 03/17/17 07:45 Morphine Skin Care Therapist Adult* 5 Mg/Ml FIBERGLASS BOAT BUILDER 1 mls/hr .change Q24H LUCIE Administration Protocol Per Protocol Ropivacaine 300 mg/ Sodium 300 mls @ 0 mls/hr 03/17/17 17:00 03/17/17 17:02 Chloride EPIDURAL 10 mls/hr PER RATE LUCIE Administration Protocol Per Protocol Potassium Chloride/Dextrose 1,000 mls @ 50 mls/hr 03/18/17 12:00 03/19/17 08: 17 D5w 1/2 Ns Kcl 20 Meq 1000 Ml* IV 50 mls/hr PER RATE LUCIE Administration Magnesium Sulfate/Dextrose 1 gm in 100 mls @ 200 mls/hr 03/19/17 08:35 Magnesium Sulfate 1 Gm Iv* IV 03/19/17 09:04 ONCE ONE Insulin Human Lispro 0 units 03/16/17 21:00 03/19/17 08:16 Humalog* SUBCUT Not Given ACHS LUCIE Protocol Metoprolol Tartrate 12.5 mg 03/16/17 21:00 03/19/17 07:30 Lopressor Tab* PO 12.5 mg Q12HR LUCIE Administration Mirtazapine 30 mg 03/16/17 21:00 03/18/17 21:19 Remeron Tab* PO 30 mg BEDTIME LUCIE Administration Omeprazole 20 mg 03/18/17 06:00 03/19/17 06:10 Prilosec Cap* PO 20 mg 0600 LUCIE Administration Ondansetron HCl 4 mg 03/16/17 17:48 Zofran Inj* IV Q4H PRN NAUSEA/VOMITING Oxazepam 15 mg 03/16/17 21:00 03/18/17 22:32 Serax Cap* PO Not Given BEDTIME LUCIE Oxycodone HCl 5 mg 03/18/17 10:45 03/18/17 16:07 Roxycodone Tab* PO 5 mg Q4H PRN Administration PAIN - MODERATE TO SEVERE Oxycodone HCl 10 mg 03/18/17 10:45 03/19/17 07:30 Roxycodone Tab* PO 10 mg Q4H PRN Administration PAIN - SEVERE Potassium Chloride 20 meq 03/19/17 08:34 Klor Con Er Tab* PO 03/19/17 08:35 ONCE ONE - Comments Comments: Reports doing better today. Patient seen and examined at bedside. His only complaints is the excessive dairy products in his full liquid diet. Denies any hx of lactose intolerance, but feels "gassy" from too much dairy. Passing flatus , denies nausea or vomiting. Ambulatory. Epidural catheter and Andres are out. Pain under good control. Objective - Objective -: Awake and alert, sitting on edge of bed, drinking coffee and reading, comfortable and in NAD. - Intake and Output -: Intake & Output 03/17/17 03/18/17 03/19/17 03/20/17 06:59 06:59 06:59 06:59 Intake Total 5734 4853 3249 282 Output Total 600 1750 1990 Balance 5134 3103 1259 282 Weight 176 lb 12.8 oz Intake: IV Fluids 5734 2288 2100 282 D5W 1/2 NS 20 meq KCL 698 282 LR 5684 2288 1402 NS 50ML, Ertopenin 1G 50 IVPB 1500 LR 1000 NS (0.9%) 500 Oral 0 1015 1120 Platelets 50 29 Output: Urine 1090 Andres 600 1750 900 Other: Estimated Blood Loss 500+ Comment Surgical Physical Exam - Comments -: Vitals reviewed, Tmax 99.7, afebrile this AM Lungs CTA bilat. Heart RRR, no murmurs Abdomen soft, NT, ND. Incision clean, dry and intact. No rigidity or rebound. Ext. without edema. Labs noted: H/H 10.09/17, Plt. 68,000, K 3.4, Mg 1.7 Assessment and Plan - Assessment -: POD#3, s/p sigmoid colectomy with UNIQUE and liver bx, stable and clinically improving. - Plan Additional Comments: Advance diet to low residue Hypokalemia, replace K with PO supplement Hypomagnesemia, replace Mg with IV run Ambulate as tolerated D/C FIBERGLASS BOAT BUILDER PO narcotic analgesia for pain control Await d/c plans
[2017-03-19] MEDS ORDERED: Morphine INJ* 2 MG/ML 1 ML SYRINGE (TWO MG - NEW SYRINGE VERSION) IV PRN (08:47)
[2017-03-19] MEDS ORDERED: oxyCODONE/Acetamin 5/325 MG* TAB PO PRN ×2 (08:47→08:48)
--- NOTE | 2017-03-19 09:33 | PN ---
Subjective Date of Service: 03/19/17 Interval History: Patient seen and examined at bedside. Denies fever, chills, shortness of breath , chest discomfort, N/V/D. Pt states that he is passing some flatus. Pt states that he felt very bloated yesterday after eating a lot of diary with his full liquid diet. Pt states that he would like to be able to ambulate in the room himself. Pt states that his pain is better controlled this morning then it was yesterday. He reports that he is urinating without difficulty since his urinary catheter was removed yesterday. Tele: Sinus rhythm, rate 80's. Family History: Unchanged from Admission Social History: Unchanged from Admission Past Medical History: Unchanged from Admission Objective Active Medications: Dextrose (D50w Syringe 50 Ml*) 12.5 gm IV PUSH .FOR FS < 60 - SS PRN Reason: FS < 60 Lactated Ringer's (Lactated Ringers 500 Ml Bag*) 500 mls @ 2,000 mls/hr IV ONCE PRN Reason: FOR SBP < 90 Ropivacaine 300 mg/ Sodium (Chloride) 300 mls @ 0 mls/hr EPIDURAL PER RATE LUCIE ; Per Protocol Potassium Chloride/Dextrose (D5w 1/2 Ns Kcl 20 Meq 1000 Ml*) 1,000 mls @ 50 mls /hr IV PER RATE [facility] Insulin Human Lispro (Humalog*) 0 units SUBCUT ACHS LUCIE Metoprolol Tartrate (Lopressor Tab*) 12.5 mg PO Q12HR LUCIE Mirtazapine (Remeron Tab*) 30 mg PO BEDTIME LUCIE Morphine Sulfate (Morphine Inj (Syringe)*) 2 mg IV Q1H PRN Reason: PAIN - SEVERE Omeprazole (Prilosec Cap*) 20 mg PO 0600 LUCIE Ondansetron HCl (Zofran Inj*) 4 mg IV Q4H PRN Reason: NAUSEA/VOMITING Oxazepam (Serax Cap*) 15 mg PO BEDTIME LUCIE Oxycodone/Acetaminophen (Percocet 5/325 Tab*) 2 tab PO Q6H PRN Reason: PAIN - MODERATE TO SEVERE Oxycodone/Acetaminophen (Percocet 5/325 Tab*) 1 tab PO Q4H PRN Reason: PAIN - MILD TO MODERATE Vital Signs - 8 hr 03/19/17 03/19/17 03/19/17 02:00 03:53 04:00 Temperature 97.8 F Pulse Rate 97 Respiratory 20 16 17 Rate Blood Pressure 154/97 (mmHg) O2 Sat by Pulse 95 98 98 Oximetry 03/19/17 03/19/17 03/19/17 06:11 07:30 07:49 Temperature 98.5 F Pulse Rate 89 Respiratory 19 16 17 Rate Blood Pressure 129/75 (mmHg) O2 Sat by Pulse 94 97 Oximetry Oxygen Devices in Use Now: None Appearance: NAD, sitting up on the side of the bed Ears/Nose/Mouth/Throat: Mucous Membranes Moist Respiratory: Symmetrical Chest Expansion and Respiratory Effort, Clear to Auscultation Cardiovascular: NL Sounds; No Murmurs; No JVD, RRR Abdominal: NL Sounds; No Tenderness; No Distention Extremities: No Edema Skin: No Rash or Ulcers Neurological: Alert and Oriented x 3, NL Muscle Strength and Tone Lines/Tubes/Other Access: Clean, Dry and Intact Peripheral IV - site benign Nutrition: Taking PO's Result Diagrams: 03/19/17 05:32 03/19/17 05:32 Assess/Plan/Problems-Billing Mr. Walls is a 61 y/o M hx of EtOH abuse, HTN, s/p sigmoidectomy for invasive adenocarcinoma, lysis of adhesions and liver biopsy. Hospitalist consulted for EtOH withdrawal and tachycardia. - Patient Problems (1) Status post laparoscopic-assisted sigmoidectomy Code(s): Z90.49 - ACQUIRED ABSENCE OF OTHER SPECIFIED PARTS OF DIGESTIVE TRACT SNOMED Code(s): 127959709 Comment: - Management per surgery. - Tolerating a full liquid diet, advance to a low residue diet per surgery. - Continue Pain control. (2) Electrolyte abnormality Code(s): E87.8 - OTH DISORDERS OF ELECTROLYTE AND FLUID BALANCE, NEC SNOMED Code(s): 687873299 Comment: - Hypokalemia - Will receive replacement today and recheck labs in the AM - Hypomagnesemia - Will receive replacement today and recheck labs in the AM (3) Hypotension Comment: - Resolved. - Suspect secondary to epidural which is managed by anesthesia. (4) Thrombocytopenia Code(s): D69.6 - THROMBOCYTOPENIA, UNSPECIFIED SNOMED Code(s): 557539625 Comment: - Pt received 1 unit of platelets yesterday - Heme consult, input appreciated - Continue to trend (5) Tachycardia Code(s): R00.0 - TACHYCARDIA, UNSPECIFIED SNOMED Code(s): 7436886 Comment: - Resolved - Unclear cause (6) Alcohol withdrawal Code(s): F10.239 - ALCOHOL DEPENDENCE WITH WITHDRAWAL, UNSPECIFIED SNOMED Code (s): 462188532 Comment: - No signs or symptoms of withdrawal. - No WAM protocol for now, would institute if patient starts to exhibit and sign /symptoms. (7) Diabetes Code(s): E11.9 - TYPE 2 DIABETES MELLITUS WITHOUT COMPLICATIONS SNOMED Code(s) : 33187075 Comment: - Glucose controlled, 110-120's. - Continue Lispro sliding scale. (8) HTN (hypertension) Code(s): I10 - ESSENTIAL (PRIMARY) HYPERTENSION SNOMED Code(s): 21727633 Comment: - Normotensive - Continue metoprolol with holding parameters (9) Insomnia Code(s): G47.00 - INSOMNIA, UNSPECIFIED SNOMED Code(s): 343669086 Comment: - Continue oxazepam. (10) DVT prophylaxis Code(s): [id number] - SNOMED Code(s): 202528608 Comment: - SCDs only in the setting of thrombocytopenia. (11) Full code status Code(s): Z78.9 - OTHER SPECIFIED HEALTH STATUS SNOMED Code(s): 996544378 Status and Disposition: Inpatient for sigmoidectomy. Dispo per surgery. Thank you for this consult.
--- NOTE | 2017-03-19 15:28 | PN ---
Progress Note - Progress Note Date of Service: 03/19/17 Note: Patient seen and examined by me. Agree with PA note from earlier today. Pathology reports d/w pt and his ex-/friend. Finding are T1N0 adenoca of the sigmoid with [address] Liver bx shows grade 1 steatohepatitis. He is pleased to hear the result. We discuss plan for discharge tomorrow AM.
[2017-03-19] MEDS: oxyCODONE/Acetamin 5/325 MG* TAB PO PRN ×2 (16:43→21:46)
[2017-03-19] MEDS: Mirtazapine TAB* 15 MG PO SCH (21:46)
[2017-03-19] MEDS: Oxazepam CAP* 15 MG PO SCH (21:48)
[2017-03-20] MEDS: D5W 1/2 NS KCl 20 Meq 1000 ML* 1,000 ML IV SCH (03:49)
[2017-03-20] MEDS: Omeprazole CAP* 20 MG PO SCH (05:42)
[2017-03-20 05:47] LABS: ABS Basophils 0 10^3/ul (0-0.2); ABS Eosinophils 0.4 10^3/ul (0-0.6); ABS Lymphocytes 0.4 10^3/ul (1.0-4.8); ABS Monocytes 0.3 10^3/ul (0-0.8); ABS Neutrophils 1.6 10^3/ul (1.5-7.7); ABS Nucleated RBC 0 10^3/ul; Eosinophil % 14.1 % (0-6); Hematocrit 30 % (42-52); Hemoglobin 10.5 g/dl (14.0-18.0); Lymphocyte % 15.4 % (25-47); Mean Corpuscular HGB Conc 35 g/dl (31-36); Mean Corpuscular Hemoglobin 35 pg (27-31); Mean Corpuscular Volume 99 fL (80-94); Nucleated Red Blood Cells % 0.1; Red Blood Count 3.02 10^6/ul (4.0-5.4); Red Cell Distribution Width 13 % (10.5-15); White Blood Count 2.7 10^3/ul (3.5-10.8)
[2017-03-20 05:55] LABS: EGFR Non-African American 118.2 (>60)
[2017-03-20 06:26] LABS: Mean Platelet Volume 10 um3 (7.4-10.4); Platelet Count 83 10^3/ul (150-450)
[2017-03-20] MEDS: Insulin LISPRO* 1 UNITS UNIT SUBCUT SCH (07:19)
[2017-03-20] MEDS: oxyCODONE/Acetamin 5/325 MG* TAB PO PRN (07:24)
[2017-03-20 07:57] VITALS: BP 149/89
[2017-03-20] MEDS: Metoprolol Tartrate TAB* 25 MG PO SCH (09:16)
--- NOTE | 2017-03-20 14:03 | DS ---
CC: Micheal Celis MD; Soledad Thomas MD; Zeyad Mead MD. * DISCHARGE SUMMARY: DATE OF ADMISSION: 03/16/17. DATE OF DISCHARGE: 03/20/17. DISCHARGE DIAGNOSES: 1. Malignant neoplasm of sigmoid colon. 2. Steatohepatitis. 3. Alcoholism. 4. Hemochromatosis. 5. Type 2 diabetes. 6. Hypertension. 7. Héctor's disease. 8. Thrombocytopenia. PROCEDURE: Laparoscopic lysis of adhesions, conversion to laparotomy for sigmoid colectomy, lysis of adhesions and liver biopsy on 03/16/17. HOSPITAL COURSE: The hospital course is as follows: Mr. Walls is a 61-year- old gentleman with the above mentioned history who was admitted on 03/16/17 for elective surgery. Please refer to the history and physical and the operative report for full details. Postoperatively, the patient's pain was managed with epidural. He was transferred to the surgical floor of the recovery room and was co- managed with hospitalist input as well as input from Dr. Thomas. Postoperative course was notable for episodes of hypotension as well as episodes of tachycardia and thrombocytopenia. The patient did receive 2 transfusions of platelets prior to removal of the epidural catheter which was on 03/18/17. He also had Andres catheter on the same day. He had progression of his bowel function with flatus actually on postoperative day #1 and his diet was gradually advanced to low residue diet by postoperative day #3. His pain was adequately managed with oral medications and his pathology revealed a T1N0 sigmoid colon carcinoma with liver biopsy demonstrating grade I steatohepatitis. Patient was deemed to be stable for discharge on 03/20/17 and discharged home with preprinted instructions from the surgical associates office and the prescription for oxycodone as needed for pain. He had no additional tests pending and was instructed to follow up in the surgical associates office in the coming week for staple removal. He will also be following up with both Dr. Thomas and his primary care office. [id number]/[facility] #: [id number] MAKAYLA
== END 2017-03-20 10:12 | disposition home health service (06) | DRG 330 ==
LOC: AA 09:45 → SSU 20:45
PROVIDERS: ADMIT Surgery; ATTEND Surgery
PROC: 0DTN0ZZ Resection of Sigmoid Colon, Open Approach (ICD-10-PCS; 2017-03-16)
PROC: 0DNU0ZZ Release Omentum, Open Approach (ICD-10-PCS; 2017-03-16)
PROC: 0DNM4ZZ Release Descending Colon, Percutaneous Endoscopic Approach (ICD-10-PCS; 2017-03-16)
PROC: 0FB10ZX Excision of Right Lobe Liver, Open Approach, Diagnostic (ICD-10-PCS; principal; 2017-03-16 11:30)
PROC: 30233R1 Transfusion of Nonautologous Platelets into Peripheral Vein, Percutaneous Approach (ICD-10-PCS; 2017-03-17)
DX: C18.7 Malignant neoplasm of sigmoid colon (principal); D68.9 Coagulation defect, unspecified; D69.59 Other secondary thrombocytopenia; D62 Acute posthemorrhagic anemia; I95.9 Hypotension, unspecified; E83.42 Hypomagnesemia; F10.239 Alcohol dependence with withdrawal, unspecified; K70.9 Alcoholic liver disease, unspecified; E11.9 Type 2 diabetes mellitus without complications; I10 Essential (primary) hypertension; L11.1 Transient acantholytic dermatosis [Grover]; F32.9 Major depressive disorder, single episode, unspecified; K66.0 Peritoneal adhesions (postprocedural) (postinfection); K43.2 Incisional hernia without obstruction or gangrene; Y90.9 Presence of alcohol in blood, level not specified; G47.00 Insomnia, unspecified; E87.6 Hypokalemia; R00.0 Tachycardia, unspecified; E83.119 Hemochromatosis, unspecified; K75.81 Nonalcoholic steatohepatitis (NASH); Z87.11 Personal history of peptic ulcer disease; Z53.31 Laparoscopic surgical procedure converted to open procedure; Z88.8 Allergy status to other drugs, medicaments and biological substances
CPT/HCPCS: 36415; 80048; 80076; 83735; 85025; 85049; 85610; 85730; 88307; 88309; 88313; 93005; 94760; 99233; A9270-GY; C1776; J1100; J1170; J1335; J1885; J2250; J2270; J2405; J2704; J2795; J3010; J3475; P9035

== ENCOUNTER 2017-07-19 09:51 | Day surgery (SDC) | payer OTHER ==
[~2017-07-19 09:51] MED LIST changes: +Acetaminophen TAB* 325 MG PO PRN; +Cyclopentolate 1% OPTH.SOL* 2 ML BTL ONE; -ERTApenem(*) 1 GM in NS 0.9% 50 ML* 50 ML IVPB SCH; -Famotidine IV* 10 MG/ML 2 ML (20 mg) IV ONE; +Ketorolac 0.5% OPHTH (NF) 0.5 % 5 ML BTL ONE; +Lidocaine 1% MPF* 2 ML VIAL ONE; -Metoclopramide TAB* 10 MG PO ONE; +Neomycin/Polymy/Dex OPHTH.OIN* 3.5 GM ONE; +Phenylephrine 2.5% OPTH.SOL* 2 ML BTL ONE; +Povidone Iodine 5% OPTH* 30 ML BTL ONE; +Tetracaine 0.5% OPTH.SOL 4 ML* 1 DROP BTL ONE; +Tropicamide 1% OPTH.SOL* BTL ONE; +acetaZOLAMIDE TAB* 250 MG ONE
[2017-07-19] MEDS ORDERED: Midazolam* 1 MG/ML 2 ML VIAL (2 MG) ONE (10:58)
[2017-07-19] MEDS ORDERED: fentaNYL* 50 MCG/ML 2 ML VIAL (100 MCG VIAL) ONE (10:58)
[2017-07-19 12:04] VITALS: BP 165/90
--- NOTE | 2017-07-19 14:12 | OP ---
DATE OF OPERATION: 07/19/17 - [facility] DATE OF : 53 SURGEON: Luis Manuel Ko MD. ANESTHESIA: Monitored anesthesia care. PRE-OP DIAGNOSIS: Cataract, right eye. POST-OP DIAGNOSIS: Cataract, right eye. OPERATIVE PROCEDURE: Extracapsular cataract extraction of the right eye with intraocular lens implant. IMPLANTS: SN60WF 7.0 diopter lens to the right eye. COMPLICATIONS: None. DESCRIPTION OF PROCEDURE: The patient was given phenylephrine 2.5% and cyclopentolate 1% eye drops to the operative eye in the preoperative area. The patient was brought to the operating room where a time-out was taken to identify the correct patient, site, and side of surgery. The patient's right eye was prepped and draped in the usual sterile fashion with 5% Betadine. A second time- out was taken to verify the correct patient, site, and side of surgery, and correct lens selection. A lid speculum was placed to the right eye. A 1-mm paracentesis blade was used to make a clear corneal incision in the superotemporal position. Preservative free 1% lidocaine was injected into the anterior chamber. DisCoVisc was then injected into the anterior chamber. A 2.75 mm keratome blade was used to make a triplanar incision at the inferotemporal position. A cystotome initiated the capsulorrhexis which was completed with Utrata forceps in a continuous and curvilinear manner. Hydrodissection of the lens was performed with BSS on a cannula. The lens could be spun in the capsular bag. The phacoemulsification handpiece was used with a divide and conquer technique to remove to nucleus in its entirety with 17.46 CDE. The I/A handpiece was then removed with a residual cortical lens material. DisCoVisc was injected to inflate the capsular bag. The planned SN60WF 7.0 diopter lens was injected into the capsular bag. The residual DisCoVisc was removed from the eye with a I/A handpiece. The corneal incisions were hydrated and no leaks occurred at physiologic pressure around 20 mmHg per palpation. The lid speculum was removed and drapes removed. Maxitrol ointment was placed to the surface of the operative eye. An adhesive patch and shield were then placed on the operative eye. The patient was taken to the postoperative area in stable condition. [id number]/[facility] #: [id number] MTDD
== END 2017-07-19 12:17 | disposition home or self-care (01) ==
LOC: OREAST 09:51
PROVIDERS: ATTEND Student in an Organized Health Care Education/Training Program
DX: H25.11 Age-related nuclear cataract, right eye (principal); H43.811 Vitreous degeneration, right eye; I10 Essential (primary) hypertension; F32.9 Major depressive disorder, single episode, unspecified; Z85.038 Personal history of other malignant neoplasm of large intestine; K74.60 Unspecified cirrhosis of liver; E11.9 Type 2 diabetes mellitus without complications
CPT/HCPCS: A9270-GY; J2250; J3010; V2632

== ENCOUNTER 2017-07-26 06:32 | Day surgery (SDC) | payer OTHER ==
[~2017-07-26 06:32] MED LIST changes: -Cyclopentolate 1% OPTH.SOL* 2 ML BTL ONE; -Ketorolac 0.5% OPHTH (NF) 0.5 % 5 ML BTL ONE; -Lidocaine 1% MPF* 2 ML VIAL ONE; -Neomycin/Polymy/Dex OPHTH.OIN* 3.5 GM ONE; -Phenylephrine 2.5% OPTH.SOL* 2 ML BTL ONE; -Povidone Iodine 5% OPTH* 30 ML BTL ONE; -Tetracaine 0.5% OPTH.SOL 4 ML* 1 DROP BTL ONE; -Tropicamide 1% OPTH.SOL* BTL ONE; -acetaZOLAMIDE TAB* 250 MG ONE
[2017-07-26] MEDS ORDERED: Midazolam* 1 MG/ML 5 ML VIAL (5 MG) ONE (07:05)
[2017-07-26] MEDS ORDERED: fentaNYL* 50 MCG/ML 2 ML VIAL (100 MCG VIAL) ONE (07:05)
[2017-07-26] MEDS ORDERED: Neomycin/Polymy/Dex OPHTH.OIN* 3.5 GM ONE (07:23)
[2017-07-26] MEDS ORDERED: Tetracaine 0.5% OPTH.SOL 4 ML* 1 DROP BTL ONE (07:23)
[2017-07-26] MEDS ORDERED: Tropicamide 1% OPTH.SOL* BTL ONE (07:23)
[2017-07-26] MEDS ORDERED: Ketorolac 0.5% OPHTH (NF) 0.5 % 5 ML BTL ONE (07:23)
[2017-07-26] MEDS ORDERED: Phenylephrine 2.5% OPTH.SOL* 2 ML BTL ONE (07:23)
[2017-07-26] MEDS ORDERED: Cyclopentolate 1% OPTH.SOL* 2 ML BTL ONE (07:23)
[2017-07-26] MEDS ORDERED: acetaZOLAMIDE TAB* 250 MG ONE (07:23)
[2017-07-26] MEDS ORDERED: Povidone Iodine 5% OPTH* 30 ML BTL ONE (07:23)
[2017-07-26] MEDS ORDERED: Lidocaine 1% MPF* 2 ML VIAL ONE (07:23)
[2017-07-26 08:06] VITALS: BP 160/62
--- NOTE | 2017-07-26 13:59 | OP ---
DATE OF OPERATION: 07/26/17 - [facility] DATE OF : 53 SURGEON: Luis Manuel Ko MD ANESTHESIA: Monitored anesthesia care. PRE-OP DIAGNOSIS: Cataract, left eye. POST-OP DIAGNOSIS: Cataract, left eye. OPERATIVE PROCEDURE: Extracapsular cataract extraction of the left eye with intraocular lens implant. IMPLANTS: SN60WF 7.5 diopter lens to the left eye. COMPLICATIONS: None. DESCRIPTION OF PROCEDURE: The patient was given phenylephrine 2.5% and cyclopentolate 1% eye drops to the operative eye in the preoperative area. The patient was brought to the operating room where a time-out was taken to identify the correct patient, site and side of surgery. The patient's left eye was prepped and draped in the usual sterile fashion with 5% Betadine. A second time-out was taken to verify the correct patient, site and side of surgery and correct lens selection. A lid speculum was placed to the left eye. A 1-mm paracentesis blade was used to make a clear corneal incision in the inferotemporal position. Preservative-free 1% lidocaine was injected into the anterior chamber. DisCoVisc was then injected into the anterior chamber. A 2.75-mm keratome blade was used to make a triplanar incision at the superotemporal position. A cystotome initiated a capsulorrhexis, which was completed with Utrata forceps in a continuous and curvilinear manner. Hydrodissection of the lens was performed with BSS on a cannula. The lens could be spun in the capsular bag. The phacoemulsification handpiece was used with a [id number] technique to remove the nucleus in its entirety with 18.68 CDE. The I/A handpiece then removed the residual cortical lens material. DisCoVisc was injected to inflate the capsular bag. The planned SN60WF 7.5 diopter lens was injected in the capsular bag. The residual DisCoVisc was removed from the eye with the I/A handpiece. The corneal incisions were hydrated and no leaks occurred at physiologic pressure around 20 mmHg per palpation. The lid speculum was removed and drapes removed. Maxitrol ointment was placed to the surface of the operative eye. An adhesive patch and shield were then placed on the operative eye. The patient was taken to the postoperative area in stable condition. [id number]/[facility] #: [id number] MTDD
== END 2017-07-26 08:28 | disposition home or self-care (01) ==
LOC: OREAST 06:32
PROVIDERS: ATTEND Student in an Organized Health Care Education/Training Program
DX: H25.12 Age-related nuclear cataract, left eye (principal); H43.811 Vitreous degeneration, right eye; K70.30 Alcoholic cirrhosis of liver without ascites; I10 Essential (primary) hypertension; E11.65 Type 2 diabetes mellitus with hyperglycemia; C18.9 Malignant neoplasm of colon, unspecified; F32.9 Major depressive disorder, single episode, unspecified
CPT/HCPCS: A9270-GY; J2250; J3010; V2632

== ENCOUNTER 2020-08-18 08:01 | Inpatient (IN) ==
[2020-08-18] MEDS ORDERED: NS 0.9% 1000 ml BAG 1,000 ML IV ONE (08:26)
[2020-08-18] MEDS ORDERED: Thiamine 100 MG/ML 2 ml VIAL 100 MG, Folic Acid IV 1 MG, Multiple Vitamin IV ADULT 10 M... IV ONE (08:27)
[2020-08-18 09:20] LABS: INR 1.58 (0.82-1.09)
[2020-08-18 09:21] LABS: ALT 13 U/L (7-52); Albumin/Globulin Ratio 0.4 (1-3); Alkaline Phosphatase 183 U/L (35-149); Blood Urea Nitrogen 5 mg/dL (6-24); CO2 Carbon Dioxide 27 mmol/L (22-32); Calcium 8.8 mg/dL (8.6-10.3); Chloride 98 mmol/L (101-111); EGFR African American 173.1 (>60); Globulin 4.8 g/dL (2-4); Glucose 126 mg/dL (70-100); Lipase 36 U/L (11.0-82.0); Magnesium 1.7 mg/dL (1.9-2.7); Sodium 132 mmol/L (135-145); Total Protein 6.8 g/dL (6.4-8.9)
[2020-08-18 09:26] LABS: BNP 104 pg/mL (<=100)
[2020-08-18 09:34] LABS: ABS Lymphocytes 0.4 10^3/ul (1.0-4.8); ABS Monocytes 0.3 10^3/ul (0-0.8); ABS Neutrophils 1.6 10^3/ul (1.5-7.7); Eosinophil % 1.5 %; Hematocrit 27 % (42-52); Hemoglobin 9.3 g/dL (14.0-18.0); Lymphocyte % 17.1 %; Mean Corpuscular HGB Conc 34 g/dL (31-36); Mean Corpuscular Hemoglobin 36 pg (27-31); Mean Corpuscular Volume 105 fL (80-94); Nucleated Red Blood Cells % 0.2; Red Blood Count 2.57 10^6 /uL (4.18-5.48); Red Cell Distribution Width 14 % (10-15); White Blood Count 2.4 10^3/uL (3.5-10.8)
[2020-08-18 09:35] LABS: Mean Platelet Volume 8.9 fL (7.4-10.4); Platelet Count 92 10^3/uL (150-450)
[2020-08-18 09:36] LABS: Alcohol, S 13 mg/dL (<10)
[2020-08-18 09:40] LABS: Anion Gap 7 mmol/L (2-11)
[2020-08-18] MEDS ORDERED: Magnesium Sulfate IV 1GM/100ML 1 GM/100 ML BAG IV ONE (09:47)
[2020-08-18] MEDS ORDERED: Ondansetron 4 mg VIAL 2 MG/ML 2 ml VIAL IV ONE (10:15)
[2020-08-18] MEDS ORDERED: LORazepam 2 mg VIAL 1 ml IV PUSH ONE (10:43)
[2020-08-18] MEDS ORDERED: Lorazepam PYXIS KEY PRN (10:43)
[2020-08-18 11:00] LABS: Potassium Redraw 3.7 mmol/L (3.5-5.0)
[2020-08-18] MEDS ORDERED: Phytonadione Oral Solution 5 MG/25 ML UDC PO ONE (11:18)
[2020-08-18] MEDS ORDERED: Thiamine 100 MG/ML 2 ml VIAL (200 mg) IM ONE (11:18)
[2020-08-18] MEDS ORDERED: Al Hydrox/Mg Hydrox/Simet LIQ 30 ML UDC PO PRN (11:19)
[2020-08-18] MEDS ORDERED: Furosemide 20 mg/2 ml IV VIAL IV ONE (11:26)
[2020-08-18] MEDS ORDERED: Dextrose 50% Syringe 50 ml 25 GM/50 ML SYRINGE IV PUSH PRN (11:41)
[2020-08-18] MEDS: NS 0.9% 1000 ml BAG 1,000 ML IV SCH (17:47)
[2020-08-18] MEDS: Ondansetron 4 mg VIAL 2 MG/ML 2 ml VIAL IV PRN (23:20)
[2020-08-19] MEDS: NS 0.9% 1000 ml BAG 1,000 ML IV SCH (06:15)
[2020-08-19] MEDS: Multivitamins/Minerals TAB PO SCH (09:55)
[2020-08-19 11:56] LABS: ABS Eosinophils 0.1 10^3/ul (0-0.6); ABS Lymphocytes 0.4 10^3/ul (1.0-4.8); ABS Monocytes 0.2 10^3/ul (0-0.8); ABS Neutrophils 1.2 10^3/ul (1.5-7.7); Eosinophil % 4.4 %; Hematocrit 25 % (42-52); Hemoglobin 8.5 g/dL (14.0-18.0); Mean Corpuscular HGB Conc 34 g/dL (31-36); Mean Corpuscular Hemoglobin 36 pg (27-31); Mean Corpuscular Volume 106 fL (80-94); Mean Platelet Volume 8.3 fL (7.4-10.4); Platelet Count 71 10^3/uL (150-450); Red Blood Count 2.34 10^6 /uL (4.18-5.48); Red Cell Distribution Width 14 % (10-15)
[2020-08-19 11:59] LABS: INR 1.82 (0.82-1.09)
[2020-08-19 12:12] LABS: ALT 10 U/L (7-52); AST 36 U/L (13-39); Albumin 1.5 g/dL (3.2-5.2); Albumin/Globulin Ratio 0.4 (1-3); Alkaline Phosphatase 133 U/L (35-149); Anion Gap 4 mmol/L (2-11); Blood Urea Nitrogen 6 mg/dL (6-24); CO2 Carbon Dioxide 26 mmol/L (22-32); Calcium 7.2 mg/dL (8.6-10.3); Chloride 103 mmol/L (101-111); EGFR African American 154.2 (>60); EGFR Non-African American 127.4 (>60); Globulin 3.9 g/dL (2-4); Glucose 218 mg/dL (70-100); Potassium 3.3 mmol/L (3.5-5.0); Sodium 133 mmol/L (135-145); Total Protein 5.4 g/dL (6.4-8.9)
[2020-08-19 14:50] LABS: Ferritin 118.4 ng/mL (24-336)
[2020-08-19 14:54] LABS: Vitamin B12 > 1450 pg/mL (180-914)
[2020-08-19] MEDS ORDERED: Potassium Chlor 20 meq TAB.ER PO ONE (16:03)
[2020-08-19 17:59] LABS: Body Fluid Source Peritonial Fluid
[2020-08-19] MEDS ORDERED: Albumin Human 25% 25 GM/100 ML BTL IV ONE (18:00)
[2020-08-19] MEDS: Ondansetron 4 mg VIAL 2 MG/ML 2 ml VIAL IV PRN (18:14)
[2020-08-19 18:54] LABS: Body Fluid Mono 32 %; Body Fluid Other Cells 1
[2020-08-20 06:36] LABS: Hematocrit 21 % (42-52); Hemoglobin 7.2 g/dL (14.0-18.0); Mean Corpuscular HGB Conc 35 g/dL (31-36); Mean Corpuscular Hemoglobin 37 pg (27-31); Mean Corpuscular Volume 105 fL (80-94); Mean Platelet Volume 8.1 fL (7.4-10.4); Platelet Count 58 10^3/uL (150-450); Red Blood Count 1.97 10^6 /uL (4.18-5.48); Red Cell Distribution Width 13 % (10-15); White Blood Count 1.2 10^3/uL (3.5-10.8)
[2020-08-20 06:50] LABS: Albumin 1.7 g/dL (3.2-5.2); Albumin/Globulin Ratio 0.5 (1-3); EGFR Non-African American 170.3 (>60); Globulin 3.2 g/dL (2-4); Potassium 3.6 mmol/L (3.5-5.0); Total Protein 4.9 g/dL (6.4-8.9)
[2020-08-20 07:37] LABS: ABS Eosinophils 0.1 10^3/ul (0-0.6); ABS Lymphocytes 0.4 10^3/ul (1.0-4.8); ABS Monocytes 0.2 10^3/ul (0-0.8); ABS Neutrophils 0.5 10^3/ul (1.5-7.7); Eosinophil % 4.5 %; Lymphocyte % 36.4 %; Nucleated Red Blood Cells % 0.2
[2020-08-20 09:05] LABS: Magnesium 1.7 mg/dL (1.9-2.7); Phosphorus 1.4 mg/dL (2.5-5.0)
[2020-08-20] MEDS: Multivitamins/Minerals TAB PO SCH (09:52)
[2020-08-20] MEDS ORDERED: Magnesium Sulf 4 GM/100 ML IV 4,000 MG/100 ML BAG IVPB ONE (10:06)
[2020-08-20] MEDS ORDERED: Potassium Phosphate IV 15 MMOLE in NS 0.9% 250 ml 250 ML IVPB ONE (10:07)
[2020-08-20 10:29] LABS: Hematocrit for Retic CNT 21 % (42-52); RBC Retic Count 2.01 10^6/uL (4.18-5.48)
[2020-08-20 10:35] LABS: Corrected Retic Count 0.6 % (0.5-1.5); Immature Retic Fraction 0.47
[2020-08-20 14:25] LABS: Hematocrit 22 % (42-52); Hemoglobin 7.7 g/dL (14.0-18.0); Mean Corpuscular HGB Conc 35 g/dL (31-36); Mean Corpuscular Hemoglobin 36 pg (27-31); Mean Corpuscular Volume 105 fL (80-94); Mean Platelet Volume 8.2 fL (7.4-10.4); Platelet Count 66 10^3/uL (150-450); Red Blood Count 2.12 10^6 /uL (4.18-5.48); Red Cell Distribution Width 13 % (10-15); White Blood Count 1.3 10^3/uL (3.5-10.8)
[2020-08-20 15:15] LABS: ABS Eosinophils 0.1 10^3/ul (0-0.6); ABS Lymphocytes 0.4 10^3/ul (1.0-4.8); ABS Monocytes 0.3 10^3/ul (0-0.8); Eosinophil % 4.3 %; Lymphocyte % 29.5 %
[2020-08-20 16:37] LABS: ABS Neutrophils 0.6 10^3/ul (1.5-7.7)
[2020-08-21 05:55] LABS: Calcium 6.7 mg/dL (8.6-10.3); EGFR African American 239.6 (>60); Magnesium 2.1 mg/dL (1.9-2.7); Phosphorus 1.8 mg/dL (2.5-5.0); Potassium 3.5 mmol/L (3.5-5.0)
[2020-08-21] MEDS ORDERED: Potassium Chloride LIQUID 20 MEQ/15 ML LIQUID PO ONE (07:25)
[2020-08-21 07:28] LABS: ABS Eosinophils 0.1 10^3/ul (0-0.6); ABS Lymphocytes 0.5 10^3/ul (1.0-4.8); ABS Monocytes 0.3 10^3/ul (0-0.8); ABS Neutrophils 0.6 10^3/ul (1.5-7.7); Eosinophil % 4.2 %; Hematocrit 22 % (42-52); Hemoglobin 7.5 g/dL (14.0-18.0); Lymphocyte % 33.3 %; Mean Corpuscular HGB Conc 34 g/dL (31-36); Mean Corpuscular Hemoglobin 36 pg (27-31); Mean Corpuscular Volume 105 fL (80-94); Mean Platelet Volume 8.5 fL (7.4-10.4); Nucleated Red Blood Cells % 0.3; Platelet Count 75 10^3/uL (150-450); Red Cell Distribution Width 14 % (10-15); White Blood Count 1.5 10^3/uL (3.5-10.8)
[2020-08-21] MEDS ORDERED: Potassium Phosphate IV 15 MMOLE in NS 0.9% 250 ml 250 ML IVPB ONE (08:22)
[2020-08-21] MEDS ORDERED: Potassium & Sodium Phos 250 mg = 1 PACKET PO SCH (09:00)
[2020-08-21] MEDS: Multivitamins/Minerals TAB PO SCH (09:33)
[2020-08-21] MEDS ORDERED: Polyethylene Glycol 3350 17 GM PACKET PO PRN (10:53)
[2020-08-21] MEDS: Lactulose 30 ml UDC PO SCH ×2 (12:50→23:07)
[2020-08-21 13:50] LABS: Lactate Dehydrogenase, BF 42 U/L
[2020-08-21 15:19] LABS: Fluid Type, Glucose PERITONEAL; Glucose, BF 156 mg/dL
[2020-08-21 15:22] LABS: Fluid Type, Protein, Total PERITONEAL
[2020-08-21 15:53] LABS: Hematocrit 24 % (42-52); Hemoglobin 8.1 g/dL (14.0-18.0)
[2020-08-21] MEDS ORDERED: Iodixanol (CONTRAST) 320 MG/ML 100 ML SDV IV ONE (16:44)
[2020-08-22 06:26] LABS: Hematocrit 23 % (42-52); Hemoglobin 7.7 g/dL (14.0-18.0); Mean Corpuscular HGB Conc 34 g/dL (31-36); Mean Corpuscular Hemoglobin 36 pg (27-31); Mean Corpuscular Volume 105 fL (80-94); Mean Platelet Volume 8.1 fL (7.4-10.4); Platelet Count 81 10^3/uL (150-450); Red Blood Count 2.16 10^6 /uL (4.18-5.48); Red Cell Distribution Width 14 % (10-15); White Blood Count 1.6 10^3/uL (3.5-10.8)
[2020-08-22 06:31] LABS: Albumin 1.6 g/dL (3.2-5.2); Albumin/Globulin Ratio 0.5 (1-3); Calcium 6.7 mg/dL (8.6-10.3); EGFR Non-African American 170.3 (>60); Globulin 3.3 g/dL (2-4); Potassium 3.7 mmol/L (3.5-5.0); Total Bilirubin 2.5 mg/dL (0.2-1.0); Total Protein 4.9 g/dL (6.4-8.9)
[2020-08-22] MEDS: Multivitamins/Minerals TAB PO SCH (07:39)
[2020-08-22] MEDS: Lactulose 30 ml UDC PO SCH ×3 (07:39→12:22)
[2020-08-22 08:30] LABS: ABS Eosinophils 0.1 10^3/ul (0-0.6); ABS Lymphocytes 0.5 10^3/ul (1.0-4.8); ABS Monocytes 0.3 10^3/ul (0-0.8); ABS Neutrophils 0.8 10^3/ul (1.5-7.7); Eosinophil % 3.9 %; Lymphocyte % 28.7 %; Nucleated Red Blood Cells % 0.1
[2020-08-22] MEDS ORDERED: Lactulose 30 ml UDC PO PRN (15:32)
[2020-08-23 05:21] LABS: ABS Eosinophils 0.1 10^3/ul (0-0.6); ABS Lymphocytes 0.5 10^3/ul (1.0-4.8); ABS Monocytes 0.3 10^3/ul (0-0.8); ABS Neutrophils 0.9 10^3/ul (1.5-7.7); Eosinophil % 4.5 %; Hematocrit 23 % (42-52); Hemoglobin 7.7 g/dL (14.0-18.0); Lymphocyte % 29.3 %; Mean Corpuscular HGB Conc 34 g/dL (31-36); Mean Corpuscular Hemoglobin 36 pg (27-31); Mean Corpuscular Volume 106 fL (80-94); Mean Platelet Volume 7.8 fL (7.4-10.4); Platelet Count 89 10^3/uL (150-450); Red Blood Count 2.15 10^6 /uL (4.18-5.48); Red Cell Distribution Width 14 % (10-15); White Blood Count 1.8 10^3/uL (3.5-10.8)
[2020-08-23 05:35] LABS: Calcium 6.8 mg/dL (8.6-10.3); EGFR African American 192.4 (>60); Phosphorus 2.1 mg/dL (2.5-5.0); Potassium 3.5 mmol/L (3.5-5.0)
[2020-08-23] MEDS ORDERED: Potassium Chloride LIQUID 20 MEQ/15 ML LIQUID PO ONE (06:36)
[2020-08-23] MEDS: Multivitamins/Minerals TAB PO SCH (08:10)
[2020-08-23 11:27] VITALS: BP 91/53
== END 2020-08-23 14:45 | DRG 433 ==
LOC: ED 08:01 → MED 11:19
PROVIDERS: ADMIT Hospitalist; ATTEND Internal Medicine